=== PATIENT | female | born 1965 | race Caucasian/White ===

== ENCOUNTER 2020-03-30 13:17 | Emergency (ER) | payer MEDICARE ==
[~2020-03-30] VITALS: Ht 157.5 cm; Wt 81.8 kg
[2020-03-30] MEDS ORDERED: LOSA-30 PO (13:25)
[2020-03-30] MEDS ORDERED: KETOROLAC TROMETHAMINE 60 MG/2 ML VIAL IM ONE (14:15)
[2020-03-30] MEDS ORDERED: DICLOFENAC SODIUM 1% 100 GM GEL [4GM] TP ONE (14:15)
[2020-03-30 15:59] VITALS: BP 164/68
== END 2020-03-30 16:35 | disposition home or self-care (01) ==
LOC: EMS 13:17
DX: M25.561 Pain in right knee (principal); R20.0 Anesthesia of skin; I10 Essential (primary) hypertension; Z90.710 Acquired absence of both cervix and uterus
CPT/HCPCS: 73562; 96372; 99283; J1885